=== PATIENT | male | born 1985 | race Caucasian/White ===

== ENCOUNTER 2016-11-11 22:14 | Emergency (ER) | payer OTHER ==
[~2016-11-11 22:14] MED LIST: ALBUTEROL17 GM INH; AMOXICILLIN500 M1 PO; AUGMENTIN875 MG PO; GLIPIZIDE5 GM; GLUCOPHAGE500 MG; IBUPROFEN800 MG PO; LORTAB 10 MG-3473 ML PO; NO MEDICATIONS; VITAMIN D10000 UNIT; ZESTRIL10 M1
== END 2016-11-11 23:56 | disposition home or self-care (01) ==
LOC: SED 22:14
DX: J03.90 Acute tonsillitis, unspecified (principal); I10 Essential (primary) hypertension; Z91.018 Allergy to other foods
CPT/HCPCS: 87651; 96372; 99283; J1100